=== PATIENT | male | born 1995 | race Native Hawaiian/Other Pacific Islander ===

== ENCOUNTER 2021-08-01 16:35 | Emergency (ER) | payer SELFPAY ==
--- NOTE | 2021-08-01 17:27 | XRay Report ---
XR hand 3+V LT INDICATION / CLINICAL INFORMATION: nailgun throught left middle finger, swelling/pain. COMPARISON: None available. FINDINGS: BONES/JOINT(S): There is a suspected nondisplaced fracture through the ulnar cortex of the proximal p halanx shaft of the third finger (this can also represent a vascular channel but this is felt to be l ess likely). No significant degenerative changes. SOFT TISSUES: No significant abnormality. ADDITIONAL FINDINGS: None. Signer Name: Joseph Martinez MD Signed: 08/01/2021 5:23 PM Workstation Name: [id number]
--- NOTE | 2021-08-01 17:50 | Emergency Department Report ---
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 He reports he was working with a nail gun to put up wooden boards when he accidentally nailed his finger and it went all the way through. He states that this morning when he woke up he was having finger and hand swelling and pain. He states he has difficulty moving the finger. He denies any numbness, weakness, drainage, fever, chills, vomiting. He reports his last tetanus immunization was 3 years ago. Patient denies past medical history or allergies to medications - Related Data Previous Rx's Medication Instructions Recorded Last Taken Type Ibuprofen [Motrin 600 MG tab] 600 mg PO Q8H PRN #14 tablet 08/01/21 Unknown Rx Sulfamethoxazole/Trimethoprim 1 each PO BID 7 Days #14 tablet 08/01/21 Unknown Rx [Bactrim DS TAB] cephALEXin [Keflex] 500 mg PO QID 7 Days #28 cap 08/01/21 Unknown Rx traMADoL [Ultram 50 MG tab] 50 mg PO Q6HR PRN #10 tablet 08/01/21 Unknown Rx Allergies Allergy/AdvReac Type Severity Reaction Status Date / Time No Known Allergies Allergy Verified 08/01/21 17:35 ED Review of Systems ROS: Stated complaint: LEFT HAND PAIN AND SWELLING Other details as noted in HPI Comment: All other systems reviewed and negative ED Past Medical Hx - Medications Home Medications: Home Medications Medication Instructions Recorded Confirmed Last Taken Type Ibuprofen [Motrin 600 MG tab] 600 mg PO Q8H PRN #14 tablet 08/01/21 Unknown Rx Sulfamethoxazole/Trimethoprim 1 each PO BID 7 Days #14 tablet 08/01/21 Unknown Rx [Bactrim DS TAB] cephALEXin [Keflex] 500 mg PO QID 7 Days #28 cap 08/01/21 Unknown Rx traMADoL [Ultram 50 MG tab] 50 mg PO Q6HR PRN #10 tablet 08/01/21 Unknown Rx ED Physical Exam - General Limitations: No Limitations General appearance: alert, in no apparent distress - Head Head exam: Present: atraumatic, normocephalic - Eye Eye exam: Present: normal appearance - ENT ENT exam: Present: mucous membranes moist - Neurological Exam Neurological exam: Present: alert, oriented X3 - Psychiatric Psychiatric exam: Present: normal affect, normal mood - Skin Skin exam: Present: warm, dry, other (small puncture wound with scabbing present to the left anterior and posterior left middle finger, ttp, decreased ROM of the left middle finger, edema present residential down the dorsum of the left hand, no ttp of the palm of the hand, finger is not in a flexed position, neurovascularly intact) ED Course Vital Signs 08/01/21 16:40 Temperature 98.1 F Pulse Rate 68 Respiratory 18 Rate Blood Pressure 115/72 [Right] O2 Sat by Pulse 98 Oximetry ED Medical Decision Making - Lab Data Result diagrams: 08/01/21 17:46 08/01/21 17:46 Lab Results 08/01/21 08/01/21 08/01/21 Range/Units 17:46 17:46 17:46 WBC 7.1 (4.5-11.0) K/mm3 RBC 5.08 H (3.65-5.03) M/mm3 Hgb 14.1 (11.8-15.2) gm/dl Hct 43.4 (35.5-45.6) % MCV 85 (84-94) fl MCH 28 (28-32) pg MCHC 33 (32-34) % RDW 12.9 L (13.2-15.2) % Plt Count 265 (140-440) K/mm3 Lymph % (Auto) 32.5 (13.4-35.0) % Whitman % (Auto) 6.5 (0.0-7.3) % Eos % (Auto) 3.7 (0.0-4.3) % Baso % (Auto) 0.9 (0.0-1.8) % Lymph # (Auto) 2.3 (1.2-5.4) K/mm3 Whitman # (Auto) 0.5 (0.0-0.8) K/mm3 Eos # (Auto) 0.3 (0.0-0.4) K/mm3 Baso # (Auto) 0.1 (0.0-0.1) K/mm3 Seg Neutrophils % 56.4 (40.0-70.0) % Seg Neutrophils # 4.0 (1.8-7.7) K/mm3 Sodium 137 (137-145) mmol/L Potassium 3.7 (3.6-5.0) mmol/L Chloride 102.5 (98-107) mmol/L Carbon Dioxide 20 L (22-30) mmol/L Anion Gap 18 mmol/L BUN 13 (9-20) mg/dL Creatinine 0.7 L (0.8-1.3) mg/dL Estimated GFR > 60 ml/min BUN/Creatinine Ratio 19 % Glucose 132 H (75-100) mg/dL Lactic Acid 1.50 (0.7-2.0) mmol/L Calcium 9.3 (8.4-10.2) mg/dL Total Bilirubin 0.40 (0.1-1.2) mg/dL AST 20 (5-40) units/L ALT 42 (7-56) units/L Alkaline Phosphatase 139 H (35-129) units/L C-Reactive Protein 1.20 (0.00-1.30) mg/dL Total Protein 7.4 (6.3-8.2) g/dL Albumin 4.5 (3.9-5) g/dL Albumin/Globulin Ratio 1.6 % - Radiology Data Radiology results: report reviewed Ordering Physician: BRO HALL Date of Service: 08/01/21 Procedure(s): XR hand 3+V LT Accession Number(s): [id number] cc: BRO HALL Fluoro Time In Minutes: XR hand 3+V LT INDICATION / CLINICAL INFORMATION: nailgun throught left middle finger, swelling/pain. COMPARISON: None available. FINDINGS: BONES/JOINT(S): There is a suspected nondisplaced fracture through the ulnar cortex of the proximal phalanx shaft of the third finger (this can also represent a vascular channel but this is felt to be less likely). No significant degenerative changes. SOFT TISSUES: No significant abnormality. ADDITIONAL FINDINGS: None. Signer Name: Joseph Martinez MD Signed: 08/01/2021 5:23 PM Workstation Name: [id number] Transcribed By: LEX Dictated By: Joseph Martinez MD Electronically Authenticated By: Joseph Martinez MD Signed Date/Time: 08/01/211722 DD/ 21 TD/TT: - Medical Decision Making [place]guillan interpretation by Man, it security consultant who was present during patient's entire encounter Patient is a 26-year-old male who presents emergency room with complaints of a nail going through his left middle finger yesterday. He reports he was working with a nail gun to put up wooden boards when he accidentally nailed his finger and it went all the way through. He states that this morning when he woke up he was having finger and hand swelling and pain. He states he has difficulty movi ng the finger. He denies any numbness, weakness, drainage, fever, chills, vomiting. He reports his last tetanus immunization was 3 years ago. Patient denies past medical history or allergies to medications. Vitals are stable. On exam: small puncture wound with scabbing present to the left anterior and posterior left middle finger, ttp, decreased ROM of the left middle finger, edema present residential down the dorsum of the left hand, no ttp of the palm of the hand, finger is not in a flexed position, neurovascularly intact. X-ray left hand BONES/JOINT(S): There is a suspected nondisplaced fracture through the ulnar cortex of the proximal phalanx shaft of the third finger (this can also represent a vascular channel but this is felt to be less likely). No significant degenerative changes. SOFT TISSUES: No significant abnormality. ADDITIONAL FINDINGS: None. Patient has brisk capillary refill. There is no signs of abscess. There is no drainage. No clinical signs of infectious flexor tenosynovitis. Examination appears likely consistent with cellulitis. No leukocytosis, CRP is normal, lactic acid is normal. Patient given IV cefazolin while in the emergency department and wound care was performed by nurse and patient was placed in a finger splint. Discussed all findings with patient and discussed the importance of orthopedic follow-up for reexamination. Discussed very strict return precautions with patient. Advised patient Please take medication as prescribed. Follow-up with a orthopedic doctor. Return to emergency room for any new or worsening symptoms. Critical care attestation.: If time is entered above; I have spent that time in minutes in the direct care of this critically ill patient, excluding procedure time. ED Disposition Clinical Impression: Open finger fracture Qualifiers: Encounter type: initial encounter Finger: middle finger Phalanx: proximal Fracture alignment: nondisplaced Laterality: left Qualified Code(s): S62.643B - Nondisplaced fracture of proximal phalanx of left middle finger, initial encounter for open fracture Cellulitis Qualifiers: Site of cellulitis: extremity Site of cellulitis of extremity: upper extremity Laterality: left Qualified Code(s): L03.114 - Cellulitis of left upper limb Disposition: HOME / SELF CARE / HOMELESS Is pt being admited?: No Does the pt Need Aspirin: No Condition: Stable Instructions: Cellulitis, Adult, Finger Fracture, Adult Additional Instructions: Please take medication as prescribed. Follow-up with a orthopedic doctor. Return to emergency room for any new or worsening symptoms. [place] la medicacin segn lo prescrito. Seguimiento con un mdico ortopdico. Regrese a la vipin de emergencias por cualquier sntoma nuevo o que empeore. Prescriptions: Sulfamethoxazole/Trimethoprim [Bactrim DS TAB] 1 each PO BID 7 Days #14 tablet cephALEXin [Keflex] 500 mg PO QID 7 Days #28 cap Ibuprofen [Motrin 600 MG tab] 600 mg PO Q8H PRN #14 tablet PRN Reason: Pain traMADoL [Ultram 50 MG tab] 50 mg PO Q6HR PRN #10 tablet PRN Reason: Pain , Severe (7-10) Referrals: CAROL CHEN MD [Staff Physician] - 2-3 Days Time of Disposition: 18:55 Print Language: SWEDISH
[2021-08-01 18:05] LABS: Basophils # (Auto) 0.1 K/mm3 (0.0-0.1); Basophils % (Auto) 0.9 % (0.0-1.8); Eosinophils # (Auto) 0.3 K/mm3 (0.0-0.4); Eosinophils % (Auto) 3.7 % (0.0-4.3); Hematocrit 43.4 % (35.5-45.6); Hemoglobin 14.1 gm/dl (11.8-15.2); Lymphocytes # (Auto) 2.3 K/mm3 (1.2-5.4); Lymphocytes % (Auto) 32.5 % (13.4-35.0); Mean Corpuscular HGB Conc 33 % (32-34); Mean Corpuscular Volume 85 fl (84-94); Monocytes # (Auto) 0.5 K/mm3 (0.0-0.8); Monocytes % (Auto) 6.5 % (0.0-7.3); Platelet Count 265 K/mm3 (140-440); Red Blood Count 5.08 M/mm3 (3.65-5.03); Red Cell Distribution Width 12.9 % (13.2-15.2)
[2021-08-01 18:23] LABS: Alanine Aminotransferase 42 units/L (7-56); Albumin 4.5 g/dL (3.9-5); Blood Urea Nitrogen 13 mg/dL (9-20); Calcium 9.3 mg/dL (8.4-10.2); Hemolysis Index 11
[2021-08-01 18:50] LABS: BUN/Creatinine Ratio 19
[2021-08-01 20:28] VITALS: BP 131/86
== END 2021-08-01 20:29 | disposition home or self-care (01) ==
LOC: ED 16:35
DX: S62.643B Nondisplaced fracture of proximal phalanx of left middle finger, initial encounter for open fracture (principal); L03.114 Cellulitis of left upper limb; W22.8XXA Striking against or struck by other objects, initial encounter; Y93.89 Activity, other specified; Y92.89 Other specified places as the place of occurrence of the external cause; Y99.8 Other external cause status
CPT/HCPCS: 29130; 36415; 73130; 80053; 82140; 85025; 86140; 96365; 99284; J0690